=== PATIENT | female | born 1980 | race Caucasian/White ===

== ENCOUNTER → 2017-04-28 11:02 | Outpatient (POV) | payer MEDICARE, MEDICAID, SELFPAY | PROVIDERS: Visit Provider Nurse Practitioner Acute Care | DX: Z00.00 Encounter for general adult medical examination without abnormal findings (principal) ==

== ENCOUNTER → 2017-07-07 13:21 | Outpatient (POV) | payer MEDICARE, MEDICAID, SELFPAY ==
[2017-07-07 14:14] LABS: Alanine Aminotransferase 41 U/L (12-78); Albumin Level 3.7 gm/dL (3.4-5.0); Albumin/Globulin Ratio 0.9 (1.1-1.8); Alkaline Phosphatase 105 U/L (46-116); Anion Gap 15.1 mEq/L (5-15); Aspartate Amino Transferase 24 U/L (15-37); Bilirubin,Total 0.1 mg/dL (0.2-1.0); Blood Urea Nitrogen 13 mg/dL (7-18); C-Reactive Protein 1.6 mg/L (0.0-0.9); Calcium 9.4 mg/dL (8.5-10.1); Carbon Dioxide 28 mmol/L (21.0-32.0); Chloride 101 mmol/L (98-107); Creatinine,Serum 0.82 mg/dL (0.55-1.02); Estimated Glomerular Filt Rate 80 ml/min (>60); Ferritin 49 ng/mL (8-388); GFR (African American) 97 ML/MIN (>60); Globulin 4.1 gm/dl (1.3-3.2); Glucose 146 mg/dL (74-106); Potassium 4.1 mmoL/L (3.5-5.1); Sodium 140 mmol/L (136-145); Total Protein,Serum 7.8 gm/dL (6.4-8.2)
[2017-07-07 14:18] LABS: Basophils % 0.3 % (0.1-2.0); Eosinophils # 0.1 K/mm3 (0.0-0.4); Eosinophils % 0.9 % (0.1-12.0); Hematocrit 46.1 % (37.0-47.0); Hemoglobin 14.7 g/dL (12.2-16.2); Lymphocytes # 2.4 K/mm3 (0.7-4.5); Lymphocytes % 18.2 K/mm3 (10-50); Mean Corpuscular HGB Conc 31.8 g/dL (31.8-35.4); Mean Corpuscular Hemoglobin 27.3 pg (27.0-31.2); Mean Corpuscular Volume 85.8 fl (81-99); Mean Platelet Volume 9.7 fl (7.4-10.4); Monocytes # 0.5 K/mm3 (0.1-1.0); Monocytes % 3.8 % (1.7-9.3); Neutrophils # 10.2 K/mm3 (1.8-7.8); Neutrophils % 76.7 % (37.0-80.0); Platelet Count 312 K/mm3 (142-424); Red Blood Count 5.38 M/mm3 (4.20-5.40); Red Cell Distribution Width 12.8 % (11.5-17.5); White Blood Count 13.2 K/mm3 (4.8-10.8)
[2017-07-07 15:06] LABS: Erythrocyte Sedimentation Rate 41 mm/hr (0-20)
[2017-07-08 08:24] LABS: Iron 66 ug/dL (27-159); Iron Saturation 19 % (15-55); UIBC 280 ug/dL (131-425)
[2017-07-08 15:40] LABS: Vitamin B12 529 pg/mL (232-1245); Vitamin D 25 Hydroxy 23.1 ng/mL (30.0-100.0)
== END ==
PROVIDERS: PCP Emergency Medicine; Visit Provider Nurse Practitioner Acute Care
DX: K51.90 Ulcerative colitis, unspecified, without complications (principal)
CPT/HCPCS: 80053; 82607; 82652; 82728; 83550; 85025; 85651; 86140

== ENCOUNTER → 2017-08-22 10:01 | Outpatient (CLI) | payer OTHER, MEDICARE, MEDICAID, SELFPAY ==
--- NOTE | 2017-08-22 10:09 | XR_ITS ---
EXAM: XR lumbar spine 6V w bending HISTORY: ITS.REASON: Back Pain ORDERING PHYSICIAN: Bob Estrada MD PATIENT AGE: 36 years COMPARISON: None FINDINGS: AP, lateral,, oblique, and spot views are obtained and supplemented with lateral flexion and extension views Normal alignment. No fracture or dislocation. No lytic or blastic change. No significant degenerative change. The disc spaces are preserved. No abnormal subluxation in flexion or extension IMPRESSION: Negative lumbar spine with flexion and extension views
== END ==
PROVIDERS: PCP Emergency Medicine; Visit Provider Emergency Medicine
DX: M54.9 Dorsalgia, unspecified (principal)
CPT/HCPCS: 72114

== ENCOUNTER 2017-09-09 15:00 | Outpatient (RCR) | payer OTHER, MEDICARE, MEDICAID, SELFPAY ==
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
== END 2017-09-09 15:01 | disposition home or self-care (01) ==
LOC: PT 15:00
PROVIDERS: PCP Emergency Medicine; Visit Provider Emergency Medicine
DX: M54.2 Cervicalgia (principal); M54.9 Dorsalgia, unspecified
CPT/HCPCS: 97010; 97014; 97035; 97110; 97140; 97163; G0283

== ENCOUNTER → 2017-10-06 08:59 | Outpatient (POV) | payer OTHER, MEDICARE, MEDICAID, SELFPAY | PROVIDERS: PCP Emergency Medicine; Visit Provider Nurse Practitioner Acute Care | DX: Z00.00 Encounter for general adult medical examination without abnormal findings (principal) ==

== ENCOUNTER → 2017-10-21 09:20 | Outpatient (REF) | payer MEDICARE, MEDICAID, SELFPAY ==
[2017-10-21 19:19] LABS: Amphetamine/Metha Screen,Urine Negative ng/mL (<1000); Barbiturates Screen,Urine Negative ng/mL (<200); Benzodiazepines Screen,Urine Negative ng/mL (<200); Cannabinoid Screen,Urine Negative ng/mL (<50); Cocaine Screen,Urine Negative ng/mL (<300); Methadone Screen,Urine Negative ng/mL (<300); Opiate Screen,Urine Negative ng/mL (<300); Phencyclidine Screen,Urine Negative ng/mL (<25)
== END ==
LOC: LAB 09:20
PROVIDERS: Visit Provider Emergency Medicine
DX: Z79.899 Other long term (current) drug therapy (principal)
CPT/HCPCS: 80305

== ENCOUNTER → 2017-10-30 07:56 | Outpatient (CLI) | payer OTHER, MEDICARE, MEDICAID, SELFPAY ==
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
== END ==
PROVIDERS: PCP Emergency Medicine; Visit Provider Emergency Medicine
DX: R41.3 Other amnesia (principal); F07.81 Postconcussional syndrome; M54.6 Pain in thoracic spine
CPT/HCPCS: 70551; 72072

== ENCOUNTER 2017-11-24 10:30 | Outpatient (CLI) | payer MEDICARE, MEDICAID, SELFPAY ==
[2017-11-24 11:20] VITALS: BP 147/84; PULSE 101; RESP 16; TEMP 36.7
[2017-11-24 11:35] VITALS: BP 126/81; PULSE 94; RESP 16
== END 2017-11-24 11:45 | disposition home or self-care (01) ==
LOC: INF 10:42
PROVIDERS: PCP Emergency Medicine; Visit Provider Nurse Practitioner Acute Care
DX: D50.9 Iron deficiency anemia, unspecified (principal); K90.9 Intestinal malabsorption, unspecified
CPT/HCPCS: 96374; Q0138

== ENCOUNTER 2017-11-27 10:30 | Outpatient (CLI) | payer MEDICARE, MEDICAID, SELFPAY ==
[2017-11-27 11:00] VITALS: BP 125/84; PULSE 95; RESP 16; O2SAT 97
[2017-11-27 11:15] VITALS: BP 113/81; PULSE 95; RESP 18
== END 2017-11-27 11:30 | disposition home or self-care (01) ==
LOC: INF 10:40
PROVIDERS: PCP Emergency Medicine; Visit Provider Nurse Practitioner Acute Care
DX: D64.9 Anemia, unspecified (principal); K90.9 Intestinal malabsorption, unspecified
CPT/HCPCS: 96374; Q0138

== ENCOUNTER → 2018-01-05 09:59 | Outpatient (POV) | payer MEDICARE, MEDICAID, SELFPAY ==
[2018-01-05 12:07] LABS: Basophils % 0.3 % (0.1-2.0); Eosinophils # 0.3 K/mm3 (0.0-0.4); Eosinophils % 2.8 % (0.1-12.0); Hematocrit 48.9 % (37.0-47.0); Hemoglobin 15.9 g/dL (12.2-16.2); Lymphocytes # 2.4 K/mm3 (0.7-4.5); Lymphocytes % 22.4 K/mm3 (10-50); Mean Corpuscular HGB Conc 32.6 g/dL (31.8-35.4); Mean Corpuscular Hemoglobin 27.3 pg (27.0-31.2); Mean Corpuscular Volume 83.9 fl (81-99); Mean Platelet Volume 7.9 fl (7.4-10.4); Monocytes # 0.3 K/mm3 (0.1-1.0); Neutrophils # 7.7 K/mm3 (1.8-7.8); Neutrophils % 71.5 % (37.0-80.0); Platelet Count 398 K/mm3 (142-424); Red Blood Count 5.83 M/mm3 (4.20-5.40); Red Cell Distribution Width 14.2 % (11.5-17.5); White Blood Count 10.7 K/mm3 (4.8-10.8)
[2018-01-05 13:11] LABS: Alanine Aminotransferase 69 U/L (12-78); Albumin Level 3.8 gm/dL (3.4-5.0); Albumin/Globulin Ratio 0.9 (1.1-1.8); Alkaline Phosphatase 98 U/L (46-116); Anion Gap 16.2 mEq/L (5-15); Aspartate Amino Transferase 34 U/L (15-37); Bilirubin,Total 0.3 mg/dL (0.2-1.0); Blood Urea Nitrogen 12 mg/dL (7-18); C-Reactive Protein 2.1 mg/L (0.0-0.9); Calcium 9.8 mg/dL (8.5-10.1); Carbon Dioxide 28 mmol/L (21.0-32.0); Chloride 100 mmol/L (98-107); Creatinine,Serum 0.96 mg/dL (0.55-1.02); Estimated Glomerular Filt Rate 66 ml/min (>60); Ferritin 432 ng/mL (8-388); GFR (African American) 80 ML/MIN (>60); Globulin 4.2 gm/dl (1.3-3.2); Glucose 118 mg/dL (74-106); Potassium 4.2 mmoL/L (3.5-5.1); Sodium 140 mmol/L (136-145)
[2018-01-06 08:22] LABS: Iron 72 ug/dL (27-159); UIBC 223 ug/dL (131-425)
[2018-01-07 11:26] LABS: Iron Saturation 24 % (15-55); Vitamin B12 >2000 pg/mL (232-1245); Vitamin D 25 Hydroxy 31.9 ng/mL (30.0-100.0)
== END ==
PROVIDERS: PCP Emergency Medicine; Visit Provider Nurse Practitioner Acute Care
DX: K50.80 Crohn's disease of both small and large intestine without complications (principal)
CPT/HCPCS: 36415; 80053; 82607; 82652; 82728; 83540; 83550; 85025; 86140

== ENCOUNTER → 2018-01-13 14:25 | Outpatient (CLI) | payer MEDICARE, MEDICAID, SELFPAY ==
[2018-01-13 16:52] LABS: Erythrocyte Sedimentation Rate 38 mm/hr (0-20)
== END ==
PROVIDERS: PCP Emergency Medicine; Visit Provider Nurse Practitioner Acute Care
DX: K50.80 Crohn's disease of both small and large intestine without complications (principal)
CPT/HCPCS: 36415; 85651

== ENCOUNTER → 2018-03-11 19:05 | Outpatient (CLI) | payer MEDICARE, MEDICAID, SELFPAY ==
[2018-03-11 23:15] LABS: Free T4 (Free Thyroxine) 1.12 ng/dl (0.76-1.46); Thyroid Stimulating Hormone 1.53 uIU/ml (0.358-3.740)
== END ==
PROVIDERS: Visit Provider Emergency Medicine
DX: M79.7 Fibromyalgia (principal)
CPT/HCPCS: 84439; 84443

== ENCOUNTER → 2018-06-09 10:04 | Outpatient (CLI) | payer MEDICARE, MEDICAID, SELFPAY | PROVIDERS: PCP Emergency Medicine; Visit Provider Emergency Medicine | DX: R00.2 Palpitations (principal) | CPT/HCPCS: 93005; 93225; 93226 ==

== ENCOUNTER 2020-01-22 11:04 | Emergency (ER) | payer MEDICARE, MEDICAID, SELFPAY ==
[2020-01-22 11:05] VITALS: BP 153/95; PULSE 104; RESP 18; TEMP 36.2; O2SAT 98; BMI 31.7
--- NOTE | 2020-01-22 11:23 | CT_ITS ---
PROCEDURE: CT ABDOMEN PELVIS W CON CLINICAL INDICATION: ABD PAIN Abdominal pain with diarrhea and blood in stool COMPARISON: No exams were available for comparison TECHNIQUE: IV Contrast: 75ML OPTIRAY 350 Oral Contrast None Axial images obtained with sagittal and coronal reformats. All CT scans at the facility use one or more dose reduction, viz: automated exposure control, ma/kV adjustment per patient size (including targeted exams where dose is matched to indication, i.e. head), or iterative reconstruction technique. FINDINGS: LOWER THORAX: No acute finding ABDOMEN & PELVIS: The liver, spleen, adrenal glands, pancreas, kidneys, and adrenal glands have an unremarkable appearance. No evidence of appendicitis. No intestinal obstruction or free air. There is mild thickening of the descending and sigmoid colon. There is some minimal haziness of the pericolic fat along the descending colon. This may be related to colitis.. There are some fluid-filled loops of large bowel involving the cecum and ascending colon and transverse colon with some air-fluid levels consistent with diarrhea disease/colitis.. No acute bony findings. There is a small umbilical hernia containing fat. IMPRESSION: Findings are compatible with colitis/diarrhea disease Dictated by: Marcio Kamara MD 01/22/2020 13:06 Marcio Kamara MD in [facility] 01/22/2020 13:06
[2020-01-22 11:29] LABS: Microscopic, Urine URINE MICROSCOPIC (MICROSCOPIC)
[2020-01-22 11:32] LABS: Appearance,Urine CLEAR (Clear); Bilirubin,Urine Negative (Negative); Blood, Urine Negative (Negative); Color,Urine YELLOW (Yellow); Glucose,Urine (UA) Negative (Negative); Ketones,Urine Negative (Negative); Leukocyte Esterase,Urine Negative (Negative); Nitrate,Urine Negative (Negative); PH,Urine 5.5 (5.0-8.5); Protein,Urine Negative (Negative); Urobilinogen,Urine 0.2 EU/dl (0.2)
[2020-01-22 11:35] VITALS: BP 156/86; PULSE 99; RESP 17; O2SAT 99
[2020-01-22 11:38] LABS: Occult Blood,Stool Negative (Negative); Urine Pregnancy, HCG Qual. Negative (Negative)
[2020-01-22 11:40] LABS: Bacteria,Urine Trace /lpf
--- NOTE | 2020-01-22 11:40 | PC.NURSE ---
Addendum entered by Salima Rey RN 01/22/20 14:10: WRONG TIME, 1220 Original Note: PT TO CT
[2020-01-22 11:58] LABS: Basophils # 0.1 K/mm3 (0-0.2); Basophils % 0.6 % (0.1-2.0); Eosinophils # 0.2 K/mm3 (0.0-0.4); Eosinophils % 1.8 % (0.1-12.0); Hematocrit 40.4 % (37.0-47.0); Lymphocytes # 3.2 K/mm3 (0.7-4.5); Lymphocytes % 25.9 % (10-50); Mean Corpuscular HGB Conc 29.8 g/dL (31.8-35.4); Mean Corpuscular Hemoglobin 21.8 pg (27.0-31.2); Mean Corpuscular Volume 73.4 fl (81-99); Mean Platelet Volume 7.3 fl (7.4-10.4); Monocytes # 0.5 K/mm3 (0.1-1.0); Monocytes % 3.7 % (1.7-9.3); Neutrophils # 8.3 K/mm3 (1.8-7.8); Red Cell Distribution Width 15.5 % (11.5-17.5); White Blood Count 12.2 K/mm3 (4.8-10.8)
--- NOTE | 2020-01-22 12:00 | HMH.EDGENADL ---
ED Disposition Clinical Impression: Colitis Disposition: Home, Self-Care Condition on Discharge: Good Instructions: DI for Ulcerative Colitis, DI for Colitis Additional Instructions: Prednisone as prescribed. Call Friday to arrange follow-up appointment with either primary care provider or Dr. Reyna. Return to the emergency department if fevers greater than 100 degrees, repetitive vomiting, severe abdominal pain, severe rectal bleeding. Follow-up results of diarrhea panel next week with primary care provider or Dr. Reyna. This test was obtained in the emergency department, but results will not be available for several days. Prescriptions: predniSONE [Prednisone 10mg Tab Dose-Pack] 10 mg PO DAILY #40 pack Transmission Status: Received by [facility] Referrals: Bob Estrada MD [Primary Care Provider] - - Critical Care Critical Care Time: No Attestation: On 01/22/20, the high probability of a clinically significant, sudden or life threatening deterioration of the following system(s) required my full and direct attention, intervention and personal management. The time I documented below is in addition to time spent performing reported procedures but includes the following listed in this critical care notation. Medical Decision Making - Medical Records Medical records reviewed: Yes: I reviewed the patient's medical records. - Iker Inquiry Pt receiving controlled substance: No Vital Signs: 01/22/20 11:05 01/22/20 11:35 01/22/20 12:05 Temperature 97.2 F L Temperature Source Temporal Artery Scan Pulse Rate Pulse Rate [Right] 104 H 99 H 101 H Respiratory Rate 18 17 18 Blood Pressure Blood Pressure [Right Arm] 153/95 H 156/86 H 143/65 H Blood Pressure Mean [Right Arm] 114 109 91 02 Sat by Pulse Oximetry 98 99 98 01/22/20 14:08 Temperature 98.1 F Temperature Source Pulse Rate 87 Pulse Rate [Right] Respiratory Rate 17 Blood Pressure 142/85 H Blood Pressure [Right Arm] Blood Pressure Mean [Right Arm] 02 Sat by Pulse Oximetry - Lab Data Lab results reviewed: Yes: I reviewed the patient's lab results. Lab Results 01/22/20 11:15: Urine Color Yellow, Urine Appearance Clear, Urine pH 5.5, Ur Specific [place] 1.020, Urine Protein Negative, Urine Glucose (UA) Negative, Urine Ketones Negative, Urine Blood Negative, Urine Nitrate Negative, Urine Bilirubin Negative, Urine Urobilinogen 0.2, Ur Leukocyte Esterase Negative, Urine RBC 3-5, Urine WBC 3-5, Ur Squamous Epith Cells 5-10, Urine Bacteria Trace 01/22/20 11:15: Stool Occult Blood Negative 01/22/20 11:15: Urine HCG, Qual Negative 01/22/20 11:48: WBC 12.2 H, RBC 5.50 H, Hgb 12.0 L, Hct 40.4, MCV 73.4 L, MCH 21.8 L, MCHC 29.8 L, RDW 15.5, Plt Count 552 H, MPV 7.3 L, Neut % (Auto) 68.0, Lymph % (Auto) 25.9, [place] % (Auto) 3.7, Eos % (Auto) 1.8, Baso % (Auto) 0.6, Neut # (Auto) 8.3 H, Lymph # (Auto) 3.2, [place] # (Auto) 0.5, Eos # (Auto) 0.2, Baso # (Auto) 0.1 01/22/20 12:50: Sodium 136, Potassium 4.5, Chloride 97 L, Carbon Dioxide 28, Anion Gap 15.5 H, BUN 16, Creatinine 0.80, Estimated Creat Clear 128, Estimated GFR 81, Est GFR ( Amer) 98, Glucose 115 H, Calcium 10.2, Total Bilirubin 0.3, AST 25, ALT 18, Alkaline Phosphatase 112, Total Protein 8.0, Albumin 4.3, Globulin 3.7 H, Albumin/Globulin Ratio 1.2, Amylase 59, Lipase 306 H Result diagrams: 01/22/20 11:48 01/22/20 12:50 Orders (Tests/Meds): ED MEDICATIONS Discontinued Medications Generic Name Dose Route Start Last Admin Trade Name Freq PRN Reason Stop Dose Admin Ioversol 75 ml 01/22/20 12:34 01/22/20 12:35 Ioversol-350 (74%) 100ml Vial IV 01/22/20 12:35 75 ml ONCE ONE Administration Protocol Methylprednisolone Sodium Succinate 125 mg 01/22/20 13:43 01/22/20 14:03 Methylprednisolone Sod Succ 125mg Vial IV 01/22/20 13:44 125 mg ONCE ONE Administration Sodium Chloride 10 ml 01/22/20 12:34 01/22/20 12:35 Sodium Chloride 0.9% 10m
[2020-01-22 12:04] LABS: Platelet Count 552 K/mm3 (142-424)
[2020-01-22 12:05] VITALS: BP 143/65; PULSE 101; RESP 18; O2SAT 98
--- NOTE | 2020-01-22 12:45 | PC.NURSE ---
PT REMAINS WITH RADIOLOGY
[2020-01-22 12:55] LABS: Adenovirus F 40/41, stool Not Detected (NotDetected); Astrovirus Not Detected (NotDetected); Campylobacter Not Detected (NotDetected); Clostridium Difficile A/B, PCR Not Detected (NotDetected); Cryptosporidium Not Detected (NotDetected); Cyclospora Cayetanesis Not Detected (NotDetected); Entamoeba histolytica Not Detected (NotDetected); Enteroaggregative E coli Not Detected (NotDetected); Enteropathogenic E coli Not Detected (NotDetected); Enterotoxigenic E coli Not Detected (NotDetected); Giardia lamblia Not Detected (NotDetected); Norovirus Not Detected (NotDetected); Plesimonas Shigalloides, PCR Not Detected (NotDetected); Rotavirus A Not Detected (NotDetected); Salmonella, PCR Not Detected (NotDetected); Sapovirus Not Detected (NotDetected); Shiga-like toxin E coli Not Detected (NotDetected); Shigella Enterovasive E coli Not Detected (NotDetected); Vibrio Cholerae Not Detected (NotDetected); Vibrio, PCR Not Detected (NotDetected); Yersinia Entercolitica, PCR Not Detected (NotDetected)
[2020-01-22 13:00] LABS: Chloride 97 mmol/L (98-107); Potassium 4.5 mmoL/L (3.5-5.1); Sodium 136 mmol/L (136-145)
[2020-01-22 13:03] LABS: Alanine Aminotransferase 18 U/L (12-78); Albumin Level 4.3 g/dl (3.5-5.0); Albumin/Globulin Ratio 1.2 (1.1-1.8); Alkaline Phosphatase 112 U/L (38-126); Amylase 59 U/L (30-110); Anion Gap 15.5 mEq/L (5-15); Aspartate Amino Transferase 25 U/L (14-36); Bilirubin,Total 0.3 mg/dl (0.2-1.3); Blood Urea Nitrogen 16 mg/dl (7-17); Calcium 10.2 mg/dl (8.4-10.2); Carbon Dioxide 28 mmol/L (22.0-30.0); Creatinine Clearance Estimated 128 mL/min (50-200); Estimated Glomerular Filt Rate 81 ml/min (>60); GFR (African American) 98 ML/MIN (>60); Globulin 3.7 g/dL (1.3-3.2); Glucose 115 mg/dl (74-100); Lipase 306 U/L (23-300)
--- NOTE | 2020-01-22 13:10 | PC.NURSE ---
PT BACK FROM CT
--- NOTE | 2020-01-22 13:37 | PC.NURSE ---
DR GREENWOOD PAGED AT THIS TIME
--- NOTE | 2020-01-22 13:41 | PC.NURSE ---
SPEAKING TO DR CARRIZALES WHOSE FRANKFURTER INSPECTOR FOR K[facility]STY[facility]
[2020-01-22 14:08] VITALS: BP 142/85; PULSE 87; RESP 17; TEMP 36.7; O2SAT 100
== END 2020-01-22 14:32 | disposition home or self-care (01) ==
PROVIDERS: Emergency Provider Emergency Medicine; PCP Emergency Medicine
DX: K51.90 Ulcerative colitis, unspecified, without complications (principal); J45.909 Unspecified asthma, uncomplicated; M79.7 Fibromyalgia; F41.9 Anxiety disorder, unspecified
CPT/HCPCS: 36415; 74177; 80053; 81001; 81025; 82150; 82272; 83690; 85025; 87506; 96374; 99284; G0328; Q9967

== ENCOUNTER → 2020-03-20 10:17 | Outpatient (POV) | payer MEDICARE, MEDICAID, SELFPAY | PROVIDERS: Visit Provider Nurse Practitioner Family | DX: Z00.00 Encounter for general adult medical examination without abnormal findings (principal) ==

== ENCOUNTER → 2021-05-07 11:00 | Outpatient (CLI) | payer MEDICARE, BC, SELFPAY ==
[2021-05-07 12:15] LABS: Basophils # 0.1 K/mm3 (0-0.2); Basophils % 0.6 % (0.1-2.0); Eosinophils # 0.1 K/mm3 (0.0-0.4); Eosinophils % 1.1 % (0.1-12.0); Hematocrit 40.4 % (37.0-47.0); Hemoglobin 12.7 g/dL (12.2-16.2); Lymphocytes # 1.6 K/mm3 (0.7-4.5); Lymphocytes % 16.3 % (10-50); Mean Corpuscular HGB Conc 31.4 g/dL (31.8-35.4); Mean Corpuscular Hemoglobin 25.8 pg (27.0-31.2); Mean Corpuscular Volume 81.9 fl (81-99); Mean Platelet Volume 7.8 fl (7.4-10.4); Monocytes # 0.5 K/mm3 (0.1-1.0); Monocytes % 4.8 % (1.7-9.3); Neutrophils # 7.5 K/mm3 (1.8-7.8); Neutrophils % 77.2 % (37.0-80.0); Platelet Count 648 K/mm3 (142-424); Red Blood Count 4.93 M/mm3 (4.20-5.40); Red Cell Distribution Width 16.5 % (11.5-17.5); White Blood Count 9.7 K/mm3 (4.8-10.8)
[2021-05-07 12:37] LABS: Chloride 105 mmol/L (98-107)
[2021-05-07 12:38] LABS: Sodium 137 mmol/L (136-145)
[2021-05-07 12:40] LABS: Alanine Aminotransferase 10 U/L (12-78); Aspartate Amino Transferase 17 U/L (14-36); Blood Urea Nitrogen 12 mg/dl (7-17); Estimated Glomerular Filt Rate 70 ml/min (>60); GFR (African American) 85 ML/MIN (>60)
[2021-05-07 12:41] LABS: Albumin Level 2.8 g/dl (3.5-5.0); Alkaline Phosphatase 116 U/L (38-126); Calcium 9.6 mg/dl (8.4-10.2); Carbon Dioxide 26 mmol/L (22.0-30.0); Cholesterol 155 mg/dl (140-200); Globulin 2.9 g/dL (1.3-3.2); Glucose 134 mg/dl (74-100); HDL Cholesterol 78 mg/dl (40-60); Total Protein,Serum 5.7 g/dl (6.3-8.2); Triglycerides 83 mg/dl (30-150); VLDL Cholesterol 17 mg/dL (0-40)
[2021-05-07 12:45] LABS: Bilirubin,Total < 0.1 mg/dl (0.2-1.3)
[2021-05-07 12:52] LABS: Direct LDL Cholesterol 62.96 mg/dL (100-129)
[2021-05-07 12:54] LABS: Hemoglobin A1C 5.1 % (4.0-6.0)
[2021-05-07 13:27] LABS: Adenovirus F 40/41, stool Not Detected (NotDetected); Astrovirus Not Detected (NotDetected); Campylobacter Not Detected (NotDetected); Clostridium Difficile A/B, PCR Not Detected (NotDetected); Cryptosporidium Not Detected (NotDetected); Cyclospora Cayetanesis Not Detected (NotDetected); Entamoeba histolytica Not Detected (NotDetected); Enteroaggregative E coli Not Detected (NotDetected); Enteropathogenic E coli Not Detected (NotDetected); Enterotoxigenic E coli Not Detected (NotDetected); Giardia lamblia Not Detected (NotDetected); Norovirus Not Detected (NotDetected); Plesimonas Shigalloides, PCR Not Detected (NotDetected); Rotavirus A Not Detected (NotDetected); Salmonella, PCR Not Detected (NotDetected); Sapovirus Not Detected (NotDetected); Shiga-like toxin E coli Not Detected (NotDetected); Shigella Enterovasive E coli Not Detected (NotDetected); Vibrio Cholerae Not Detected (NotDetected); Vibrio, PCR Not Detected (NotDetected); Yersinia Entercolitica, PCR Not Detected (NotDetected)
[2021-05-07 22:26] LABS: Free Thyroxine Index 4.2 ug/dL (5.93-13.13); T4 (Thyroxine) 14.5 ug/dl (5.53-11.0); Triiodothryronine (T3) Uptake 29 % (23.5-40.5)
[2021-05-07 22:40] LABS: Thyroid Stimulating Hormone 1.63 uIU/mL (0.465-4.68)
[2021-05-12 14:10] LABS: Strongyloides IgG Antibody Negative (Negative)
== END ==
PROVIDERS: PCP Internal Medicine Adolescent Medicine; Visit Provider Internal Medicine Adolescent Medicine
DX: R19.7 Diarrhea, unspecified (principal); R63.4 Abnormal weight loss; R73.03 Prediabetes
CPT/HCPCS: 36415; 80053; 80061; 83036; 84436; 84443; 84479; 85025; 86682; 87177; 87506

== ENCOUNTER 2024-02-17 15:40 | Outpatient (CLI) | payer MEDICARE, BC, SELFPAY ==
[2024-02-17 16:44] LABS: Basophils # 0.1 K/mm3 (0-0.2); Basophils % 0.7 % (0.1-2.0); Eosinophils # 0.2 K/mm3 (0.0-0.4); Eosinophils % 1.4 % (0.1-12.0); Hematocrit 42.3 % (37.0-47.0); Hemoglobin 14.7 g/dL (12.2-16.2); Lymphocytes # 2.6 K/mm3 (0.7-4.5); Lymphocytes % 21.9 % (10-50); Mean Corpuscular HGB Conc 34.8 g/dL (31.8-35.4); Mean Corpuscular Volume 80.3 fl (81-99); Monocytes # 0.5 K/mm3 (0.1-1.0); Monocytes % 4.2 % (1.7-9.3); Neutrophils # 8.4 K/mm3 (1.8-7.8); Neutrophils % 71.8 % (37.0-80.0); Platelet Count 362 K/mm3 (142-424); Red Blood Count 5.27 M/mm3 (4.20-5.40); Red Cell Distribution Width 14.2 % (11.5-17.5); White Blood Count 11.7 K/mm3 (4.8-10.8)
[2024-02-17 17:22] LABS: Alanine Aminotransferase 19 U/L (12-78); Albumin Level 4.6 g/dl (3.5-5.0); Albumin/Globulin Ratio 1.5 (1.1-1.8); Alkaline Phosphatase 76 U/L (38-126); Anion Gap 13.2 mEq/L (5-15); Aspartate Amino Transferase 25 U/L (14-36); Bilirubin,Total 0.5 mg/dl (0.2-1.3); Blood Urea Nitrogen 11 mg/dl (7-17); Calcium 9.6 mg/dl (8.4-10.2); Carbon Dioxide 26 mmol/L (22.0-30.0); Chloride 102 mmol/L (98-107); Cholesterol 271 mg/dl (140-200); Estimated Glomerular Filt Rate 79 ml/min (>60); GFR (African American) 96 ML/MIN (>60); Glucose 106 mg/dl (74-100); HDL Cholesterol 68 mg/dl (40-60); Potassium 4.2 mmoL/L (3.5-5.1); Sodium 137 mmol/L (136-145); Total Protein,Serum 7.6 g/dl (6.3-8.2); Triglycerides 186 mg/dl (30-150); VLDL Cholesterol 37 mg/dL (0-40)
[2024-02-17 17:34] LABS: Direct LDL Cholesterol 161.89 mg/dL (100-129)
[2024-02-17 17:52] LABS: Thyroid Stimulating Hormone 0.66 uIU/mL (0.465-4.68)
== END 2024-02-17 23:59 | disposition home or self-care (01) ==
LOC: LAB.DROPOF 02-18 09:10
PROVIDERS: PCP Internal Medicine; Visit Provider Internal Medicine
DX: K52.9 Noninfective gastroenteritis and colitis, unspecified (principal); E78.5 Hyperlipidemia, unspecified; E03.9 Hypothyroidism, unspecified
CPT/HCPCS: 80053; 80061; 84443; 85025

== ENCOUNTER 2024-03-30 11:12 | Emergency (ER) | payer MEDICARE, BC, SELFPAY ==
--- NOTE | 2024-03-30 11:29 | ED_ITS ---
Discharge Plan Disposition Patient Disposition: Home, Self-Care Prescriptions Prescriptions: No Action montelukast 10 mg tablet 10 mg PO QPM Qty: 90 0RF Lyrica 150 mg capsule 150 mg PO BID Qty: 60 2RF ziprasidone HCl 40 mg capsule PO BID sertraline 50 mg tablet PO DAILY omeprazole 40 mg capsule,delayed release(/EC) See Rx Instructions .ROUTE .COMPLEX Qty: 90 0RF Dose Instruction: TAKE 1 CAPSULE BY MOUTH ONCE DAILY FOR HEARTBURN Rx Instructions: TAKE 1 CAPSULE BY MOUTH ONCE DAILY FOR HEARTBURN L. gasseri-B. bifidum-B longum 1.5 billion cell capsule See Rx Instructions PO DAILY Qty: 90 3RF Rx Instructions: 1 capsule orally daily; Referrals Follow up/Referrals: Rosendo Dinh MD [Primary Care Provider] - See instructions Activity Restrictions/Add. Instructions Additional Instructions/Restrictions: At this time it was felt you are safe to be discharged home. If new or worsening symptoms please do not hesitate to return the emergency department. As discussed please follow-up with Dr. Dinh as soon as you are able for possible initiation of blood pressure medication. Clinical Impressions Clinical Impression: Asymptomatic hypertension Print Language Print Language: Danish Discharge ED Provider: Yang Hannon General Adult HPI General Stated complaint: high b/p and heart rate Time Seen by Provider: 03/30/24 11:22 History of Present Illness HPI narrative: Patient is a 43-year-old female with past medical history of anxiety and schizoaffective disorder who presents emergency department for evaluation of blood pressure check. Patient randomly checks her blood pressure and has been elevated over the last couple of days causing her to present here because she cannot get into Dr. Dinh's office. She denies chest pain, headache, does not have any other acute complaints other than wanting her blood pressure checked. Related Data Home Medications ?Medication ?Instructions ?Recorded ?Confirmed sertraline 50 mg tablet mg PO DAILY 02/17/24 02/17/24 ziprasidone HCl 40 mg capsule mg PO BID 02/17/24 02/17/24 Previous Rx's ?Medication ?Instructions ?Recorded montelukast 10 mg tablet 10 mg PO QPM ALLERGIES #90 tabs 07/14/19 pregabalin 150 mg capsule (Lyrica) 150 mg PO BID #60 caps 11/22/19 omeprazole 40 mg capsule,delayed See Rx Instructions .Route 01/26/21 release .COMPLEX #90 caps Lactobacills gasseri-Bifidobac See Rx Instructions PO DAILY #90 02/18/24 bifidum,longum 1.5 billion cell caps capsule Allergies Allergy/AdvReac Type Severity Reaction Status Date / Time lurasidone (From Latuda) Allergy Intermediate trouble Verified 02/17/24 14:53 breathing PFSH [facility] Disclaimer: The information contained in this section may have been updated after the patient was seen, as this information can be updated by other users. Social History Smoking Status: Never smoker alcohol intake: never substance use type: denies use current occupational status: disabled Travel in the last 8 weeks: None household members: family housing: house number of children: 0 Have you lived/traveled outside [place] in past 30 days?: No Contact w/someone who lives/traveled outside US past 30 days?: No Exposure to someone with infectious disease in past 14 days?: No Do you have a fever (greater than 100.4 F or 38 C)?: No Have you tested positive for COVID-19: No Exposed to someone with COVID-19 in past 14 days?: No Do you have a sore throat?: No Do you have a cough?: No Do you have any weakness?: No Do you have any diarrhea?: No Are you experiencing any unusual bleeding?: No Do you have any muscle aches/pain?: No Do you have any abdominal pain?: No Are you experiencing loss of taste or smell?: No Other Medical History Have you received the Flu Vaccine for this season: No Have you received the Pneumonia Vaccine: No ROS Obtained: Yes Systems reviewed as appropriate & no additional complaints except as documented Physical Exam General General appearance: alert and in no apparent distress Head Head exam: atraumatic and normocephalic Eye Eye exam: Present PERRL ENT ENT exam: Present mucous membranes moist Neck Neck exam: Present normal inspection Chest Chest inspection: Present normal inspection and symmetric chest wall rise Respiratory Respiratory exam: Absent respiratory distress Cardiovascular Cardiovascular exam: Present regular rate and normal rhythm Abdominal Exam Abdominal exam: Present soft; Absent tenderness Extremities Exam Extremities exam: Present normal inspection Neurological Exam Neurological exam: Present alert and normal gait Psychiatric Psychiatric exam: Present normal affect Skin Skin exam: Present warm and dry Medical Decision Making Medical Records Screening: Per USPSTF and CDC recommendations, given the prevalence of disease in our r egion, it is our hospital?s policy to screen for HIV and viral Hepatitis for all patients aged 18 and over and those with ongoing risk factors. Iker Inquiry Pt receiving controlled substance: No Medical Decision Narrative: In summary patient is a 43-year-old female past medical history described above who presents emergency department for evaluation of blood pressure elevation. Patient is hemodynamically stable nontoxic-appearing upon arrival, afebrile, hypertensive. Patient has slight tachycardia on my initial evaluation which she attributes to her anxiety and throughout the evaluation as conversation went on her tachycardia resolved. I have no concern for pulmonary embolism at this time. Patient does not meet criteria for hypertensive emergency given that is well below 220 systolic, regardless of systolic number patient is asymptomatic otherwise and acute intervention is not indicated. Workup so labs and imaging screening for secondary organ damage was considered however given that she is asymptomatic will be deferred at this time. Patient was given multiple return precautions verbalized understanding will follow-up with Dr. Dinh on outpatient basis for management of her blood pressure. Critical Care Critical Care Time Critical Care Time: No
[2024-03-30 11:31] VITALS: BP 174/119; PULSE 108; RESP 16; TEMP 37.1; O2SAT 100; BMI 32.5
[2024-03-30 11:34] VITALS: BP 174/119
[2024-03-30 11:35] VITALS: BP 152/102; PULSE 101; RESP 16; TEMP 37.1
== END 2024-03-30 11:38 | disposition home or self-care (01) ==
LOC: UTC 11:14 → ER 11:14
PROVIDERS: Emergency Provider Emergency Medicine; PCP Internal Medicine
DX: R00.9 Unspecified abnormalities of heart beat (principal); I10 Essential (primary) hypertension
CPT/HCPCS: 99282

== ENCOUNTER 2024-04-06 14:05 | Outpatient (CLI) | payer MEDICARE, BC, SELFPAY | END 2024-04-06 23:59 | disposition home or self-care (01) | LOC: LAB.DROPOF 14:05 | PROVIDERS: PCP Internal Medicine; Visit Provider Internal Medicine | DX: K52.9 Noninfective gastroenteritis and colitis, unspecified (principal) | CPT/HCPCS: 87177 ==

== ENCOUNTER 2024-05-04 09:54 | Outpatient (CLI) | payer MEDICARE, SELFPAY ==
[2024-05-04 18:39] LABS: Anion Gap 17.8 mEq/L (5-15); Blood Urea Nitrogen 7 mg/dl (7-17); Calcium 9.8 mg/dl (8.4-10.2); Carbon Dioxide 26 mmol/L (22.0-30.0); Chloride 99 mmol/L (98-107); Estimated Glomerular Filt Rate 79 ml/min (>60); GFR (African American) 96 ML/MIN (>60); Glucose 157 mg/dl (74-100); Potassium 3.8 mmoL/L (3.5-5.1); Sodium 139 mmol/L (136-145)
== END 2024-05-04 23:59 | disposition home or self-care (01) ==
LOC: LAB.DROPOF 05-05 09:54
PROVIDERS: PCP Internal Medicine; Visit Provider Internal Medicine
DX: I10 Essential (primary) hypertension (principal)
CPT/HCPCS: 80048

== ENCOUNTER 2025-02-25 09:08 | Outpatient (CLI) | payer OTHER, SELFPAY ==
[2025-02-25 15:45] LABS: Hematocrit 46.9 % (37.0-47.0); Hemoglobin 15.1 g/dL (12.2-16.2); Immature Granulocytes % 0.3 %; Mean Corpuscular HGB Conc 32.2 g/dL (31.8-35.4); Mean Corpuscular Hemoglobin 26.4 pg (27.0-31.2); Mean Corpuscular Volume 82.0 fl (81-99); Nucleated Red Blood Cells % 0 %; Platelet Count 424 K/mm3 (142-424); Red Blood Count 5.72 M/mm3 (4.20-5.40); Red Cell Distribution Width-SD 39.5 fL; White Blood Count 13.4 K/mm3 (4.8-10.8)
[2025-02-25 16:24] LABS: Alanine Aminotransferase 19 U/L (12-78); Albumin Level 5.0 g/dl (3.5-5.0); Albumin/Globulin Ratio 1.6 (1.1-1.8); Alkaline Phosphatase 77 U/L (38-126); Anion Gap 15.9 mEq/L (5-15); Aspartate Amino Transferase 25 U/L (14-36); Bilirubin,Total 0.4 mg/dl (0.2-1.3); Blood Urea Nitrogen 6 mg/dl (7-17); Calcium 10.1 mg/dl (8.4-10.2); Carbon Dioxide 24 mmol/L (22.0-30.0); Chloride 100 mmol/L (98-107); Cholesterol 243 mg/dl (140-200); Creatinine,Serum 0.70 mg/dl (0.52-1.04); Estimated Glomerular Filt Rate 92 ml/min (>60); GFR (African American) 111 ML/MIN (>60); Globulin 3.1 g/dL (1.3-3.2); Glucose 142 mg/dl (74-100); HDL Cholesterol 62 mg/dl (40-60); Potassium 4.9 mmoL/L (3.5-5.1); Sodium 135 mmol/L (136-145); Total Protein,Serum 8.1 g/dl (6.3-8.2); Triglycerides 168 mg/dl (30-150)
[2025-02-25 17:04] LABS: Hepatitis C Ab Qual. W/ RFX NEGATIVE (Negative)
[2025-02-25 17:08] LABS: Vitamin B12 > 1000 pg/mL (239-931)
--- OUTSIDE RECORDS SUMMARY | 2025-02-28 13:16 | XMS_ITS | Clinical Summary ---
Author Organization [facility] [id number] [facility] Address [address] [place] [phone] Phone Care Team Providers Care Barge Worker Name Role Phone Unavailable Primary Care Provider Unavailabl e Allergies No known active allergies Medications * This document contains information received from the source organization and may not represent a complete record from that organization. citalopram (CELEXA) 20 mg Oral Tablet Take 1 Tab by mouth daily. 30 Tab 6 09/29/2020 Active paliperidone palm, 3-month, (INVEGA TRINZA) 273 mg/0.875 mL IM Syringe Inject 273 mg into the muscle Every 90 Days. 1 Each 5 12/19/2020 Active Active Problems No known active problems Social History Tobacco Use Types Packs/Day Years Used Date Smoking Tobacco: Never Assessed Comments Unknown Sex and Gender Information Value Date Recorded Sex Assigned at Not on file Legal Sex Female 5:11 AM EDT Gender Identity Not on file Sexual Orientation Not on file Plan of Treatment Health Maintenance Due Date Last Done Comments Wellness Exam Medicare 1985 DTaP/TDaP/Td (1 - Tdap) 2001 Hepatitis B Vaccine (1 of 3 - 19+ 3-dose series) 2001 Cervical Cancer Screening 11/01/2003 Pap Smear 11/01/2003 HPV/Pap Cotest 2012 Breast Cancer Screening 2022 COVID-19 Vaccine ( - 2024-2 6 season) 2024 Influenza Vaccine (#1) 2024 Meningococcal B Vaccine Aged Out No l onger eligible based on patient's age to complete this topic Pneumococcal Vaccine 0-49 Aged Out No longer eligible based on patient's age to complete this topic Insurance [employer] MEDICARE PPO MR
== END 2025-02-25 23:59 | disposition home or self-care (01) ==
LOC: LAB.DROPOF 02-28 13:05
PROVIDERS: PCP Internal Medicine; Visit Provider Internal Medicine
DX: Z00.00 Encounter for general adult medical examination without abnormal findings (principal); D64.9 Anemia, unspecified; I10 Essential (primary) hypertension; E53.8 Deficiency of other specified B group vitamins; Z11.59 Encounter for screening for other viral diseases; E78.5 Hyperlipidemia, unspecified; Z11.4 Encounter for screening for human immunodeficiency virus [HIV]
CPT/HCPCS: 80053; 80061; 82607; 85025; 86803; 87389